=== PATIENT | male | born 1960 | race Caucasian/White ===

== ENCOUNTER 2020-03-01 19:58 | Emergency (ER) | payer OTHER ==
[~2020-03-01] VITALS: Ht 162.6 cm; Wt 72.6 kg
--- NOTE | 2020-03-01 20:15 | NUR ---
PT BIBA FROM STREETS C/O ETOH. PT DROWSY, CONFUSED, MUMBLING AT BEDSIDE, RESPIRATIONS EVEN AND UNLABORED ON RA W/ NAD NOTED. PT UNABLE TO PROVIDE INFORMATION OR PAST MEDICAL HISTORY. PT CONNECTED TO THE [employer] AND [employer].
[2020-03-01] MEDS ORDERED: HALOPERIDOL LACTATE INJ 5 MG/ML VIAL ONE (22:38)
[2020-03-01] MEDS: HALOPERIDOL LACTATE INJ 5 MG/ML VIAL IM ONE (22:40)
--- NOTE | 2020-03-02 04:10 | NUR ---
PT RESTING COMFORTABLY IN BED. VSS. NO ACUTE DISTRESS NOTED. SITTER AT BEDSIDE FOR SAFETY. WILL CONTINUE TO MONITOR
--- NOTE | 2020-03-02 06:39 | NUR ---
Patient given written and verbal discharge instructions. Patient verbalizes understanding of instructions. Patient is ambulatory with steady gait. Refuses offer of [facility] placement. Patient given list of available shelters in surrounding area.
[2020-03-02 06:40] VITALS: BP 111/64
== END 2020-03-02 06:41 | disposition home or self-care (01) ==
LOC: EDBD 20:01 → ER 20:01
DX: F10.129 Alcohol abuse with intoxication, unspecified (principal); Y90.9 Presence of alcohol in blood, level not specified
CPT/HCPCS: 96372; 99283; J1630